=== PATIENT | female | born 1965 | race Caucasian/White ===

== ENCOUNTER 2020-05-01 15:41 | Emergency (ER) | payer OTHER ==
[~2020-05-01] VITALS: Ht 167.6 cm; Wt 77.3 kg
[2020-05-01 15:56] VITALS: BP 131/100
[2020-05-01] MEDS ORDERED: HYDROcodone/acetaminophen 5mg/325mg tablet PO ONE (18:20)
[2020-05-01] MEDS ORDERED: HYDR-3965 PO (19:36)
[2020-05-01] MEDS ORDERED: DOCU100C38 PO (19:36)
== END 2020-05-01 19:40 | disposition home or self-care (01) ==
LOC: ER 15:41
DX: M54.89 Other dorsalgia (principal); S52.502A Unspecified fracture of the lower end of left radius, initial encounter for closed fracture; M25.531 Pain in right wrist; M25.532 Pain in left wrist; R51.9 Headache, unspecified; G89.29 Other chronic pain; Z79.899 Other long term (current) drug therapy; W18.39XA Other fall on same level, initial encounter; Y93.89 Activity, other specified; Y92.89 Other specified places as the place of occurrence of the external cause; Y99.8 Other external cause status
CPT/HCPCS: 29125; 72100; 72131; 73110; 99284